=== PATIENT | male | born 1940 | race Caucasian/White ===

== ENCOUNTER → 2018-02-17 | Outpatient (CLI) | payer MEDICARE, OTHER ==
[~2018-02-17] MED LIST: ASPIRIN EC325 M1 PO; ASPIRIN81 M2 PO; CARAFATE 1 GM TA1 GM PO; CARVEDILOL3.125 MG PO; CELEBREX 200 M200 M1 PO; FELDENE20 MG PO; FLOVENT HFA 1110 MCG INH; LISINOPRIL2.5 MG PO; METFORMIN HCL500 M2 PO; NEURONTIN600 MG PO; NEXIUM40 MG PO; NITROQUICK0.4 MG SL; OMEPRAZOLE40 MG PO; PRESERVISION L1 EACH PO; UROXATRAL PO; XARELTO20 MG PO; ZESTORETIC 20-1 EAC1 PO; ZOCOR40 MG PO; [UNRECOGNIZED DRUG - OTHER] PO
== END ==
LOC: M.ULTRA 08:51
DX: N28.1 Cyst of kidney, acquired (principal); R11.0 Nausea; R14.2 Eructation; R10.9 Unspecified abdominal pain

== ENCOUNTER → 2018-04-23 | Outpatient (CLI) | payer MEDICARE, OTHER | LOC: M.NUC 04-15 07:30 | DX: R10.9 Unspecified abdominal pain (principal); R11.0 Nausea; R14.2 Eructation ==

== ENCOUNTER → 2019-05-19 | Outpatient (CLI) | payer MEDICARE, OTHER | LOC: M.NUC 12:45 | DX: R10.10 Upper abdominal pain, unspecified (principal) ==